=== PATIENT | female | born 1990 | race African-American/Black ===

== ENCOUNTER 2016-03-25 23:41 | Emergency (ER) | payer MEDICAID ==
[~2016-03-25 23:41] MED LIST: AMOX875 PO; BENZ100 PO; IBUP-232 PO; IBUP600T26 PO; PROM25TA5 PO
[2016-03-25 23:44] VITALS: BP 135/110; PULSE 97; RESP 16; TEMP 98.3; O2SAT 97
[2016-04-07] MEDS ORDERED: GUMMCHW (17:12)
[2016-04-15] MEDS ORDERED: METR-1 PO ×2 (15:29→16:25)
[2016-04-15] MEDS ORDERED: METR500T10 PO (16:26)
[2016-07-20] MEDS ORDERED: PYRI25TA2 PO (15:51)
[2016-08-29] MEDS ORDERED: NITR1CAP36 PO (09:25)
== END 2016-03-26 00:30 | disposition left against medical advice (07) ==
LOC: NED 23:41
DX: J35.9 Chronic disease of tonsils and adenoids, unspecified (principal)
CPT/HCPCS: 99281

== ENCOUNTER 2016-04-25 09:54 | Emergency (ER) | payer MEDICAID ==
[~2016-04-25] VITALS: Ht 149.9 cm; Wt 100.0 kg
[~2016-04-25 09:54] MED LIST changes: -AMOX875 PO; -BENZ100 PO; +GUMMCHW; -IBUP-232 PO; -IBUP600T26 PO; +METR500T10 PO; -PROM25TA5 PO
[2016-04-25 09:55] VITALS: BP 119/64; PULSE 96; RESP 18; TEMP 98.2; O2SAT 98
--- NOTE | 2016-04-25 10:36 | PD ---
HPI Chief Complaint: ENT Complaint Time Seen by Provider: 10:21 Travel History International Travel<30 days: No Contact w/Intl Traveler<30days: No Traveled to known affect area: No History of Present Illness HPI 24-year-old female, 13 weeks , presents to the emergency Department with complaint of sore throat 2 days. Reports nasal congestion. Denies fever , chills. Denies ear pain or cough. Denies headache or abdominal pain. Denies lump in throat, difficulty swallowing, unusual drooling. Reports painful swallowing. Reports vomiting secondary to . Denies abdominal pain, cramping; vaginal discharge or bleeding. Has not taken any medications or tried any treatments to alleviate her symptoms. No known relieving factors. No known allergies. Denies significant past medical history. Is currently taking Flagyl for a vaginal infection that was prescribed by her PAINT GRINDER/PCP. OB /PERCUSSION INSTRUMENT TUNER and PCP is Dr. Enamorado. No other modifying factors or associated signs and symptoms. PFSH Past Medical History Medical History: Denies Significant Hx Diabetes: No Immune Disorder: No : 1 Para: 1 Miscarriage: 0 : 0 Past Surgical History Eye Surgery: Yes (TEAR DUCT) Social History Alcohol Use: No Tobacco Use: No Substance Use: No Allergies-Medications (Allergen,Severity, Reaction): Coded Allergies: No Known Allergies (Unverified , 04/25/16) Reported Meds & Prescriptions Reported Meds & Active Scripts Active Metronidazole 500 Mg Tab 500 Mg PO BID Reported Gummi Bear Multivitamin/M (Pediatric Multiple Vitamin W/) 1 Chw Chw Review of Systems Except as stated in HPI: all other systems reviewed are Neg Physical Exam Narrative GENERAL: Well-nourished, well-developed female patient, in no acute distress SKIN: Warm and dry. No rash. HEAD: Atraumatic. Normocephalic. EYES: Pupils equal and round at 3 mm with brisk reaction. No scleral icterus. No injection or drainage. PERRLA. ENT: Mucosa pink and dry. Pharynx with 1-2+ tonsils; with erythema and edema; without exudate. No Uvular edema. No uvular, palatal, or tonsillar deviation. Airway patent. EARS: Bilateral pinnae and external canals appear within normal limits. Bilateral tympanic membranes without erythema, dullness or perforation.. NECK: Trachea midline. No Anterior cervical lymphadenopathy; with tenderness. CARDIOVASCULAR: Regular rate and rhythm. No murmur appreciated. RESPIRATORY: No accessory muscle use. Clear to auscultation. Breath sounds equal bilaterally. GASTROINTESTINAL: Abdomen soft, non-tender, nondistended. Hepatic and splenic margins not palpable. Bowel sounds are active 4 quadrants. MUSCULOSKELETAL: No obvious deformities. No clubbing. No cyanosis. No edema. NEUROLOGICAL: Awake and alert. Oriented 3. No obvious cranial nerve deficits. Motor grossly within normal limits. Normal speech. Moves all extremities. PSYCHIATRIC: Appropriate mood and affect; insight and judgment normal. Data Data Last Documented VS Vital Signs Date Time Temp Pulse Resp B/P Pulse Ox O2 Delivery O2 Flow Rate FiO2 04/25/16 09:55 98.2 96 18 119/64 98 Room Air Orders Group A Rapid Strep Screen (04/25/16 10:24) Strep Culture (Group A) (04/25/16 10:28) MDM Medical Decision Making Medical Screen Exam Complete: Yes Emergency Medical Condition: Yes Medical Record Reviewed: Yes Differential Diagnosis Viral pharyngitis, strep pharyngitis, viral illness Narrative Course 25-year-old female that reports being 13 weeks presents with complaint of sore throat. Afebrile in the ER. Patient denies fever, chills. Denies lump in throat, unusual drooling, difficulty swallowing. Oropharynx is erythematous and mildly edematous without exudate. Denies cough. Centor Score : Using Centor score for management of sore throat the patient's risk of GABHS pharyngitis is Score 3=risk of GABHS 28-35%=perform rapid strep swab. Rapid strep ordered. 1046: Rapid strep negative. Discussed symptom treatment with patient and she verbalized understanding and agreement with treatment plan. Patient is medically cleared and stable for discharge. Discussed reasons to return to the emergency department. Instructed patient to follow up with primary care provider. Patient agrees with treatment plan. The patients vital signs are stable and the patient is stable for outpatient follow-up and treatment. Patient discharged home, stable and in no acute distress. Diagnosis Primary Impression: Viral pharyngitis Referrals: Primary Care Physician Patient Instructions: General Instructions, Pharyngitis (ED) Departure Forms: Tests/Procedures, Work Release Enter return to work date: Apr 26, 2016 Additional Instructions: Get plenty of sleep/rest Rest your voice Drink plenty of fluids to prevent dehydration Use warm saltwater gargles to soothe throat pain Use an air humidifier/turn off ceiling fans Use throat lozenges as needed for sore throat Use ibuprofen or acetaminophen as needed to relieve pain and fever Follow-up with your primary care provider within 2-4 days Return immediately to the emergency department with worsening of symptoms Med/Other Pt SpecificInfo: Prescription(s) given Disposition: 01 DISCHARGE HOME Condition: Stable Sophia Almaraz Apr 25, 2016 10:24
[2016-07-20] MEDS ORDERED: PYRI25TA2 PO (15:51)
[2016-08-29] MEDS ORDERED: NITR1CAP36 PO (09:25)
== END 2016-04-25 10:53 | disposition home or self-care (01) ==
LOC: NEPB 09:54
DX: O26.891 Other specified pregnancy related conditions, first trimester (principal); J02.9 Acute pharyngitis, unspecified; B34.9 Viral infection, unspecified
CPT/HCPCS: 87081; 87880; 99283

== ENCOUNTER → 2016-04-26 | Outpatient (CLI) | payer MEDICAID ==
[~2016-04-26] MED LIST changes: +NITR1CAP36 PO; +PYRI25TA2 PO
== END ==
LOC: HPND 10:00
PROVIDERS: ATTEND Family Medicine
DX: Z34.90 Encounter for supervision of normal pregnancy, unspecified, unspecified trimester (principal)
CPT/HCPCS: 36416; 76813

== ENCOUNTER 2016-05-20 02:43 | Emergency (ER) | payer MEDICAID ==
[~2016-05-20] VITALS: Ht 149.9 cm; Wt 102.0 kg
[~2016-05-20 02:43] MED LIST changes: -NITR1CAP36 PO; -PYRI25TA2 PO
[2016-05-20 02:45] VITALS: BP 131/77; PULSE 98; RESP 18; TEMP 98; O2SAT 99
--- NOTE | 2016-05-20 04:28 | PD ---
HPI Chief Complaint: Cold / Flu Symptoms Time Seen by Provider: 04:23 Travel History International Travel<30 days: No Contact w/Intl Traveler<30days: No Traveled to known affect area: No History of Present Illness HPI 25-year-old white female who is 16 weeks presents with complaints of runny nose, cough and congestion for last 2-3 days. She states that the coughing causing her to feel nauseous and one of vomiting. She does state that she does normally have nausea due to her . She is not taking any medications currently. She denies any shortness of breath or wheezing. No abdominal pain or vaginal bleeding. No leakage of fluid. No dysuria or frequency. No myalgias or arthralgias. PFSH Past Medical History Medical History: Denies Significant Hx Diabetes: No Diminished Hearing: No Immune Disorder: No Tetanus Vaccination: < 5 Years ?: LMP: 01/22/16 : 1 Para: 1 Miscarriage: 0 : 0 Past Surgical History Eye Surgery: Yes (TEAR DUCT) Social History Alcohol Use: No Tobacco Use: No Substance Use: No Allergies-Medications (Allergen,Severity, Reaction): Coded Allergies: No Known Allergies (Unverified , 05/20/16) Reported Meds & Prescriptions Reported Meds & Active Scripts Active Reported Gummi Bear Multivitamin/M (Pediatric Multiple Vitamin W/) 1 Chw Chw Review of Systems Except as stated in HPI: all other systems reviewed are Neg Physical Exam Narrative GENERAL: Well-developed, well-nourished in no acute distress. Nontoxic appearing. HEAD: Normocephalic, no pain on percussion of the sinuses EYES: Pupils equal round and reactive. Extraocular motions intact. No scleral icterus. No injection or drainage. ENT: TMs clear without erythema. The external auditory canals clear. Nose: clear nasal discharge with edema to the turbinates. Posterior pharynx is pink and moist. No tonsillar edema or exudate. Uvula midline. Airway patent. NECK: Trachea midline.Supple, nontender, moves head freely. No central bony tenderness or spasm. CARDIOVASCULAR: Regular rate and rhythm without murmurs, gallops, or rubs. RESPIRATORY: Clear to auscultation. Breath sounds equal bilaterally. No wheezes , rales, or rhonchi. GASTROINTESTINAL: Abdomen soft, obese, non-tender, nondistended. No hepato- splenomegaly, or palpable masses. No guarding. EXTREMITIES: No clubbing, cyanosis, or edema. No joint tenderness, effusion, or edema noted. BACK: Nontender without deformity or crepitance. No flank tenderness. Data Data Last Documented VS Vital Signs Date Time Temp Pulse Resp B/P Pulse Ox O2 Delivery O2 Flow Rate FiO2 05/20/16 02:45 98.0 98 18 131/77 99 Room Air Orders Influenzae A/B Antigen (05/20/16 03:32) MDM Medical Decision Making Medical Screen Exam Complete: Yes Emergency Medical Condition: Yes Medical Record Reviewed: Yes Interpretation(s) Influenza: Negative Differential Diagnosis MDM: High Differential diagnoses: Pneumonia, bronchitis, URI, asthma, RAD, legionnaire's disease, SARS, ARDS, influenza, bronchiolitis, RSV,PE,CHF Narrative Course Patient's influenza is negative. Her symptoms are consistent with upper respiratory tract infection. This is viral in etiology. Diagnosis Primary Impression: Viral URI with cough Patient Instructions: General Instructions Additional Instructions: Rest. Increase fluids. Tylenol for fever. Sudafed. Benadryl for nausea. Follow-up with your OB doctor on Monday. Return to the ER for emergencies. Med/Other Pt SpecificInfo: No Meds Exist/No RX given Disposition: DISCHARGE HOME Condition: Stable Luís Miller May 20, 2016 04:28
[2016-07-20] MEDS ORDERED: PYRI25TA2 PO (15:51)
[2016-08-29] MEDS ORDERED: NITR1CAP36 PO (09:25)
== END 2016-05-20 04:36 | disposition home or self-care (01) ==
LOC: NEPB 02:43
DX: J06.9 Acute upper respiratory infection, unspecified (principal)
CPT/HCPCS: 87804; 99283

== ENCOUNTER → 2016-05-30 | Outpatient (CLI) | payer MEDICAID ==
[~2016-05-30] MED LIST changes: -METR500T10 PO; +NITR1CAP36 PO; +PYRI25TA2 PO
== END ==
LOC: HPND 08:21
PROVIDERS: ATTEND Family Medicine
DX: O99.212 Obesity complicating pregnancy, second trimester (principal); O34.212 Maternal care for vertical scar from previous cesarean delivery; E66.01 Morbid (severe) obesity due to excess calories; Z68.42 Body mass index [BMI] 45.0-49.9, adult; Z3A.00 Weeks of gestation of pregnancy not specified
CPT/HCPCS: 76811

== ENCOUNTER 2016-06-03 11:15 | Emergency (ER) | payer MEDICAID ==
[~2016-06-03] VITALS: Ht 149.9 cm; Wt 100.0 kg
[~2016-06-03 11:15] MED LIST changes: -NITR1CAP36 PO; -PYRI25TA2 PO
[2016-06-03 11:17] VITALS: BP 133/74; PULSE 98; RESP 20; TEMP 98.5; O2SAT 100
--- NOTE | 2016-06-03 11:35 | PD ---
HPI Chief Complaint: Pain: Acute or Chronic Time Seen by Provider: 11:33 Travel History International Travel<30 days: No Contact w/Intl Traveler<30days: No Traveled to known affect area: No History of Present Illness HPI Patient 25-year-old female presents to the emergency room for evaluation of right lower extremity pain. Patient states since yesterday she's had a painful spot behind her right knee which hurts her whenever she stands. Patient states she's never had something like this before. Denies any fever shortness of breath. States the pain radiates up into her thigh. PFSH Past Medical History Medical History: Denies Significant Hx Diabetes: No Diminished Hearing: No Immune Disorder: No ?: LMP: 01/22/2016 : 1 Para: 1 Miscarriage: 0 : 0 Past Surgical History Surgical History: No Previous Surgery Eye Surgery: Yes (TEAR DUCT) Social History Alcohol Use: No Tobacco Use: No Substance Use: No Allergies-Medications (Allergen,Severity, Reaction): Coded Allergies: No Known Allergies (Unverified , 05/20/16) Reported Meds & Prescriptions Reported Meds & Active Scripts Active Reported Gummi Bear Multivitamin/M (Pediatric Multiple Vitamin W/) 1 Chw Chw Review of Systems Except as stated in HPI: all other systems reviewed are Neg Physical Exam Narrative GENERAL: Overweight, well-developed patient, In no apparent distress. SKIN: Warm and dry. HEAD: Normocephalic. EYES: No scleral icterus. No injection or drainage. NECK: Supple, trachea midline. No JVD or lymphadenopathy. CARDIOVASCULAR: Regular rate and rhythm without murmurs, gallops, or rubs. RESPIRATORY: Breath sounds equal bilaterally. No accessory muscle use. GASTROINTESTINAL: Abdomen soft, non-tender, nondistended. MUSCULOSKELETAL: No cyanosis, or edema. There is a small nonindurated area of the right knee in the popliteal fossa more on the medial aspect. No overlying erythema. Minimally tender to palpation. Full nontender range of motion of the right knee hip and ankle. She is ambulatory in the emergency department. She has an atraumatic normal left lower extremity exam. BACK: Nontender without obvious deformity. No CVA tenderness. Data Data Last Documented VS Vital Signs Date Time Temp Pulse Resp B/P Pulse Ox O2 Delivery O2 Flow Rate FiO2 06/03/16 14:03 85 16 124/68 100 06/03/16 11:17 98.5 Room Air Orders Us Leg Venous Doppler (06/03/16 11:33) MDM Medical Decision Making Medical Screen Exam Complete: Yes Emergency Medical Condition: Yes Differential Diagnosis Otto's cyst, DVT less likely, abscess extremely likely. Narrative Course Given the patient has some radiation up into her thigh we'll get a DVT examination which is negative. Discussed with patient's of the medic management return to ED criteria. Follow-up with primary care physician. Diagnosis Primary Impression: Otto cyst Qualified Code: M71.21 - Otto cyst, right Disposition: 01 DISCHARGE HOME Condition: Stable Cisco Michelle MD Jun 03, 2016 11:35
--- NOTE | 2016-06-03 12:34 | RADRPT ---
EXAM DATE/TIME: 06/03/2016 12:13 [facility] COMPARISON: No previous studies available for comparison. INDICATIONS : Right leg pain. MEDICAL HISTORY : . SURGICAL HISTORY : Eye surgery. ENCOUNTER: Initial ACUITY: 1 day PAIN SCORE: 10/10 LOCATION: Right leg. TECHNIQUE: Venous ultrasound of the leg was performed from the inguinal ligament to the proximal calf. Real-kareem e, color Doppler and spectral tracing, compression and augmentation techniques were used. FINDINGS: There is normal compressibility of the deep venous system from the inguinal region to the proximal ca lf. No echogenic clot is seen in the lumen of the common femoral, femoral, popliteal, and posterior tibial veins. There is a normal response of the venous system to proximal and distal augmentation an d respiration. CONCLUSION: No DVT. Neel Blount MD on June 03, 2016 at 12:31 Board Certified Radiologist. This report was verified electronically.
[2016-06-03 14:03] VITALS: BP 124/68
[2016-07-20] MEDS ORDERED: PYRI25TA2 PO (15:51)
[2016-08-29] MEDS ORDERED: NITR1CAP36 PO (09:25)
== END 2016-06-03 14:09 | disposition home or self-care (01) ==
LOC: NEPA 11:15
DX: M71.21 Synovial cyst of popliteal space [Baker], right knee (principal)
CPT/HCPCS: 93971

== ENCOUNTER → 2016-06-21 | Outpatient (CLI) | payer MEDICAID ==
[~2016-06-21] MED LIST changes: +NITR1CAP36 PO; +PYRI25TA2 PO
== END ==
LOC: HPND 09:14
PROVIDERS: ATTEND Family Medicine
DX: O99.212 Obesity complicating pregnancy, second trimester (principal); O34.212 Maternal care for vertical scar from previous cesarean delivery
CPT/HCPCS: 76816

== ENCOUNTER → 2016-07-25 | Outpatient (CLI) | payer MEDICAID | LOC: HPND 08:01 | PROVIDERS: ATTEND Family Medicine | DX: O99.212 Obesity complicating pregnancy, second trimester (principal); O35.1XX0 Maternal care for (suspected) chromosomal abnormality in fetus, not applicable or unspecified; E66.01 Morbid (severe) obesity due to excess calories; Z68.42 Body mass index [BMI] 45.0-49.9, adult | CPT/HCPCS: 76816 ==

== ENCOUNTER → 2016-08-22 | Outpatient (CLI) | payer MEDICAID | LOC: HPND 08:02 | PROVIDERS: ATTEND Family Medicine | DX: O99.213 Obesity complicating pregnancy, third trimester (principal); E66.01 Morbid (severe) obesity due to excess calories; Z68.42 Body mass index [BMI] 45.0-49.9, adult; Z3A.30 30 weeks gestation of pregnancy | CPT/HCPCS: 76816 ==

== ENCOUNTER 2016-08-31 03:50 | Emergency (ER) | payer MEDICAID ==
[2016-08-31 04:41] VITALS: RESP 18
--- NOTE | 2016-08-31 04:43 | PD ---
HPI Chief Complaint Contractions Travel History International Travel<30 Days: No Contact w/Intl Traveler<30Days: No Known Affected Area: No History of Present Illness HPI at 31w 5d presents with c/o contractions. Reports driving earlier this evening and feeling occasional contractions. Denies LOF/VB. Reports good FM. Currently taking antibiotics for a UTI. Para: 2 : 3 Last Menstrual Period: Aug 31, 2016 History Past Medical History Medical History: Denies Significant Hx Obstetric History Obstetric History FT C/S x 2 Past Surgical History Narrative Surgical C/S x 2 Family History Family History: Negative Social History Alcohol Use: No Tobacco Use: No Substance Abuse: No Allergies-Medications (Allergen,Severity, Reaction): Coded Allergies: No Known Allergies (Unverified , 08/29/16) Home Meds Active Scripts Nitrofurantoin Macrocrystal 100 Mg [id number] Mg PO QID #28 CAP Ref 0 Prov:Annamarie Enamorado MD R1 08/29/16 Pyridoxine 25 Mg Tab25 Mg PO Q8HR PRN (NAUSEA OR VOMITING) #30 TAB Ref 11 Prov:Annamarie Enamorado MD R1 07/20/16 Reported Medications Pediatric Multiple Vitamin W/ (Gummi Bear Multivitamin/M)1 Chw Chw 04/07/16 Review of Systems Except as stated in HPI: all other systems reviewed are Neg Physical Exam AFVSS Narrative GENERAL: Well-nourished, well-developed patient. SKIN: Warm and dry. HEAD: Normocephalic and atraumatic. EYES: No scleral icterus. No injection or drainage. ENT: No nasal drainage noted. Mucous membranes pink. Airway patent. NECK: Supple, trachea midline. No JVD. CARDIOVASCULAR: Regular rate and rhythm without murmurs, gallops, or rubs. RESPIRATORY: Breath sounds equal bilaterally. No accessory muscle use. BREASTS: Bilateral exam showed no masses , no retractions, no nipple discharge. ABDOMEN/GI: Abdomen soft, non-tender, bowel sounds present, no rebound, no guarding Gravid to [-] weeks size Fundal Height: [-] GENITOURINARY: External Genitalia: intact and normal in appearance BUS glands: [-] Cervix: [per RN exam] Dilatation: [0] Effacement: [0] Station: [3] Presentation: [-] Membranes: [intact or ruptured] Uterine Contractions: [none] FHT's: Category: [1] Baseline: [130] Reactive: [yes] Variability: [moderate] Decels: [none] EXTREMITIES: No cyanosis or edema. BACK: Nontender without obvious deformity. No CVA tenderness. NEUROLOGICAL: Awake and alert. Motor and sensory grossly within normal limits. Five out of 5 muscle strength in all muscle groups. Normal speech. MDM Interpretation(s) at 31w 5d with false labor, UTI. Plan Continue antibiotics for UTI. labor precautions given. Close f/u with OB provider encouraged. Increase hydration. Return if symptoms return or worsen. All questions answered. Diagnosis Diagnosis: Primary Impression: 31 weeks gestation of Additional Impressions: False labor before 37 completed weeks of gestation during in third trimester, antepartum Previous section Disposition: 01 DISCHARGE HOME Condition: Stable Kelli Tee MD Aug 31, 2016 04:43
--- NOTE | 2016-08-31 04:48 | PD ---
HPI Chief Complaint Contractions Date Seen: Aug 31, 2016 Time Seen: 04:30 (Sami Barrera MD R1) Travel History International Travel<30 Days: No Contact w/Intl Traveler<30Days: No Known Affected Area: No (Sami Barrera MD R1) History of Present Illness HPI Brianna Jaen is a very pleasant 26 year old at 31 and 5/7 weeks gestation who presents to the OB ED with complaints of contractions. She states she was picking up her boyfriend around 02:30 this AM and felt a contraction while in her car. She states she has felt about 6 contractions total since then that have been irregular. Denies LOF or VB. Reports +FM. Denies headache, lightheadedness, RUQ pain, visual symptoms. She was given a prescription for nitrofurantoin 100mg po qid for 7 days after her urine dipstick on 08/29 showed 100+ plus protein and large leukocyte. She reports being compliant with this thus far. labs: HIV negative, syphilis negative, GC/Chlamydia negative, HepB negative, Rubella immune, Hgb 10.9/Hct 34.7, Pap smear negative for intraepithelial lesion or malignancy in 2013 Para: 2 : 3 (Sami Barrera MD R1) History Past Medical History Narrative Medical History of chlamydia, treated (Sami Barrera MD R1) Obstetric History Obstetric History : 02/07/2012, 41 weeks, female, @ [facility], emergency secondary to nonreassuring heart tones G2: 11/15/13, 40 weeks, female, repeat @ [facility] (Sami Barrera MD R1) Past Surgical History Narrative Surgical CXN x2 Tear duct surgery (Sami Barrera MD R1) Family History Family History: Negative (Sami Barrera MD R1) Social History Alcohol Use: No Tobacco Use: No Substance Abuse: No (Sami Barrera MD R1) Allergies-Medications (Allergen,Severity, Reaction): Coded Allergies: No Known Allergies (Unverified , 08/29/16) Home Meds Active Scripts Nitrofurantoin Macrocrystal 100 Mg [id number] Mg PO QID #28 CAP Ref 0 Prov:Annamarie Enamorado MD R1 08/29/16 Pyridoxine 25 Mg Tab25 Mg PO Q8HR PRN (NAUSEA OR VOMITING) #30 TAB Ref 11 Prov:Annamarie Enamorado MD R1 07/20/16 Reported Medications Pediatric Multiple Vitamin W/ (Gummi Bear Multivitamin/M)1 Chw Chw 04/07/16 Review of Systems Except as stated in HPI: all other systems reviewed are Neg (Sami Barrera MD R1) Physical Exam Narrative GENERAL: Well-nourished, well-developed patient. SKIN: Warm and dry. HEAD: Normocephalic and atraumatic. EYES: No scleral icterus. No injection or drainage. ENT: No nasal drainage noted. Mucous membranes pink. Airway patent. NECK: Supple, trachea midline. No JVD. CARDIOVASCULAR: Regular rate and rhythm without murmurs, gallops, or rubs. RESPIRATORY: Breath sounds equal bilaterally. No accessory muscle use. ABDOMEN/GI: Abdomen soft, non-tender, bowel sounds present, no rebound, no guarding Gravid to 32 weeks size GENITOURINARY: External Genitalia: [-] Cervix: posterior Dilatation: 0 Effacement: 0 Station: [-] Presentation: [-] Membranes: [-] Uterine Contractions: none on tocometer FHT's: Category: I Baseline: 130s Reactive: yes Variability: mod Decels: none EXTREMITIES: No cyanosis or edema. BACK: Nontender without obvious deformity. No CVA tenderness. NEUROLOGICAL: Awake and alert. Motor and sensory grossly within normal limits. Normal speech. (Sami Barrera MD R1) Data Data Vital Signs Reviewed: Yes (Sami Barrera MD R1) [facility] Medical Record Reviewed: Yes Plan Very pleasant 26 year old at 31 and 5/7 weeks gestation presents to OB ED with complaints of contractions. 1. IUP - Category I tracing, reassuring - No contractions on tocometer - Cervix closed - VSS - Encouraged oral hydration - Counseled patient on signs of early labor and when to present back to the OB ED - Follow up with PCP Dr. Annamarie Enamorado at next routine visit (Sami Barrera MD R1) Diagnosis Diagnosis: Primary Impression: Ravalli Rodney' contraction Disposition: 01 DISCHARGE HOME Condition: Stable Attestation Patient seen and examined. Agree with resident's plan. (Kelli Tee MD) Sami Barrera MD R1 Aug 31, 2016 04:48 Kelli Tee MD Aug 31, 2016 07:48
== END 2016-08-31 06:19 | disposition home or self-care (01) ==
LOC: HOBED 03:50
DX: O47.03 False labor before 37 completed weeks of gestation, third trimester (principal); O34.219 Maternal care for unspecified type scar from previous cesarean delivery; Z3A.31 31 weeks gestation of pregnancy
CPT/HCPCS: 99283

== ENCOUNTER 2016-09-10 13:31 | Emergency (ER) | payer MEDICAID ==
--- NOTE | 2016-09-10 15:11 | PD ---
HPI Chief Complaint back pain Date Seen: Sep 10, 2016 Travel History International Travel<30 Days: No Contact w/Intl Traveler<30Days: No Known Affected Area: No History of Present Illness HPI This is a 26y/o at 33w3d who presents to the [facility] with reports of intermittent back pain for the last few weeks. The pain is usually preceded by 2 hours of contractions. She denies vaginal bleeding or leakage of fluid with reports of active movements. care with Dr. Enamorado in the resident clinic, care complicated by: 1. Choroid plexus cyst in the fetus, since resolved. 2. Previous c/s times 2 3. current UTI on macrobid Para: 2 : 3 History Past Medical History Medical History: Denies Significant Hx Obstetric History Obstetric History 02/07/2012 41w Primary c/s, emergent, Female 02/15/2014 40w Repeat c/s, Female Past Surgical History Narrative Surgical C/s times 2 Tear duct surgery as a child Family History Family History: Negative Social History Alcohol Use: No Tobacco Use: No Substance Abuse: No Allergies-Medications (Allergen,Severity, Reaction): Coded Allergies: No Known Allergies (Unverified , 08/29/16) Home Meds Active Scripts Nitrofurantoin Macrocrystal 100 Mg [id number] Mg PO QID #28 CAP Ref 0 Prov:Annamarie Enamorado MD R1 08/29/16 Pyridoxine 25 Mg Tab25 Mg PO Q8HR PRN (NAUSEA OR VOMITING) #30 TAB Ref 11 Prov:Annamarie Enamorado MD R1 07/20/16 Reported Medications Pediatric Multiple Vitamin W/ (Gummi Bear Multivitamin/M)1 Chw Chw 04/07/16 Review of Systems Except as stated in HPI: all other systems reviewed are Neg Physical Exam Narrative GENERAL: Well-nourished, well-developed patient. SKIN: Warm and dry. HEAD: Normocephalic and atraumatic. EYES: No scleral icterus. No injection or drainage. ENT: No nasal drainage noted. Mucous membranes pink. Airway patent. NECK: Supple, trachea midline. No JVD. CARDIOVASCULAR: Regular rate and rhythm without murmurs, gallops, or rubs. RESPIRATORY: Breath sounds equal bilaterally. No accessory muscle use. BREASTS: Bilateral exam showed no masses , no retractions, no nipple discharge. ABDOMEN/GI: Abdomen soft, non-tender, bowel sounds present, no rebound, no guarding Gravid to 33 weeks size GENITOURINARY: External Genitalia: intact and normal in appearance VE: deferred Uterine Contractions: None FHT's: Category: 1 EXTREMITIES: No cyanosis or edema. BACK: Nontender without obvious deformity. No CVA tenderness. NEUROLOGICAL: Awake and alert. Motor and sensory grossly within normal limits. Five out of 5 muscle strength in all muscle groups. Normal speech. Data Data Vital Signs Reviewed: Yes Orders Vital Signs (Adult) .ON ADMISSION (09/10/16 15:01) ^ Labor Status (09/10/16 15:01) ^ Non Stress Test (09/10/16 15:01) MDM Medical Record Reviewed: No Narrative Course / MDM This is a 26y/o at 33w3d with back pain for a few weeks. -reassuring status -no evidence of PTL -currently on macrobid for UTI Plan -d/c home -f/u with Dr. Enamorado as scheduled tomorrow Diagnosis Diagnosis: Primary Impression: 33 weeks gestation of Additional Impression: Back pain affecting in third trimester Disposition: 01 DISCHARGE HOME Condition: Stable Patient Instructions: Having Your Baby: The Labor Process (GEN), Urinary Tract Infection in (ED), Abdominal Pain in (ED), General Instructions Departure Forms: Tests/Procedures Mary Ac MD Sep 10, 2016 15:11
== END 2016-09-10 15:00 | disposition home or self-care (01) ==
LOC: HOBED 13:31
DX: O26.893 Other specified pregnancy related conditions, third trimester (principal); M54.9 Dorsalgia, unspecified; O23.43 Unspecified infection of urinary tract in pregnancy, third trimester; Z3A.33 33 weeks gestation of pregnancy; Z79.899 Other long term (current) drug therapy
CPT/HCPCS: 59025

== ENCOUNTER 2016-10-01 17:09 | Emergency (ER) | payer MEDICAID ==
[~2016-10-01 17:09] MED LIST changes: +MICO1CRE2 VAGINAL; -NITR1CAP36 PO
[2016-10-01] MEDS ORDERED: ACETAMINOPHEN 325 MG TAB PO ONE (18:00)
--- NOTE | 2016-10-01 18:13 | PD ---
HPI Chief Complaint abdominal pain Date Seen: Oct 01, 2016 Time Seen: 17:59 Travel History International Travel<30 Days: No Contact w/Intl Traveler<30Days: No History of Present Illness HPI Patient is a 26 year of at 36 and 1/7 weeks gestation, EDC 10/28/2016, who presents to the [facility] with abdominal pain. She denies leakage of fluid, vaginal bleeding, and contractions. She feels baby moving regularly. She denies VALDERRAMA/N/V/D /fever/sick contacts/SOB/calf pain/dizziness/seeing spots. OB care is with Dr. Annamarie Enamorado, [place] 09/30/2016 at the [facility]. She had no complaints at the visit yesterday. She does have urine sample from visit 09/23/2016 showing 10-50K yeast, with recommendation to get Monistat ointment OTC for treatment. She has not done this yet. History Past Medical History Medical History: Denies Significant Hx Past Surgical History Narrative Surgical Cs x 2 Family History Family History: Negative Social History Alcohol Use: No Tobacco Use: No Substance Abuse: No Allergies-Medications (Allergen,Severity, Reaction): Coded Allergies: No Known Allergies (Unverified , 09/30/16) Home Meds Active Scripts Miconazole 3 Vaginal Cream (Monistat 3 Vaginal Cream)4 % Cream1 Appl VAGINAL HS #1 BOX Ref 0 Apply 1 applicator to the vaginal area at bedtime. Repeat for 3 days. Prov:Annamarie Enamorado MD R1 09/29/16 Pyridoxine 25 Mg Tab25 Mg PO Q8HR PRN (NAUSEA OR VOMITING) #30 TAB Ref 11 Prov:Annamarie Enamorado MD R1 07/20/16 Reported Medications Pediatric Multiple Vitamin W/ (Gummi Bear Multivitamin/M)1 Chw Chw 04/07/16 Review of Systems Except as stated in HPI: all other systems reviewed are Neg Physical Exam Narrative GENERAL: Well-nourished, well-developed patient. Obese and in no apparent distress. SKIN: Warm and dry. No rashes HEAD: Normocephalic and atraumatic. EYES: No scleral icterus. No injection or drainage. ENT: No nasal drainage noted. Mucous membranes pink. Airway patent. NECK: Supple, trachea midline. No JVD. CARDIOVASCULAR: Regular rate and rhythm without murmurs, gallops, or rubs. RESPIRATORY: Breath sounds equal bilaterally. No accessory muscle use. ABDOMEN/GI: Abdomen soft, obese, gravid. Nontender to palpation. Normal bowel sounds. No rebound, no guarding GENITOURINARY: no external lesions External Genitalia: intact and normal in appearance Cervix: closed, thick, soft Presentation: vertx Membranes: - Uterine Contractions: absent FHT's: Category: 1 Baseline: 140 Reactive: 170 Variability: mod Decels: [absent] EXTREMITIES: No cyanosis or edema. BACK: Nontender without obvious deformity. No CVA tenderness. NEUROLOGICAL: Awake and alert. Motor and sensory grossly within normal limits. Five out of 5 muscle strength in all muscle groups. Normal speech. 2+ reflexes. Data Data Vital Signs Reviewed: Yes Orders Vital Signs (Adult) .ON ADMISSION (10/01/16 17:49) ^ Labor Status (10/01/16 17:49) ^ Non Stress Test (10/01/16 17:49) ^ Hydration (10/01/16 17:49) Acetaminophen (Tylenol) (10/01/16 18:00) MDM Medical Record Reviewed: Yes (102/61, P110, R18, T 98.3F) Narrative Course / MDM 26-year-old at 36 and 1/7 weeks gestation who presents to the OB ED with abdominal pain. Intrauterine : Category 1 tracing No contractions Vaginal exam shows no signs of labor Patient desires repeat Abdominal pain: Likely musculoskeletal given location Vital signs were within normal limits a low likelihood of other systemic cause Tylenol 650 mg 1 PO Fentanyl 50mg x 1 IV If symptoms improve, will discharge home Recommended patient to rest and consider using an abdominal binder or similar apparatus to stabilize the abdomen History of 2: consult scheduled for October 06 at 2 PM Patient was reminded the importance to attend this session Follow-up appointment with me on October 07 Patient was discussed with Dr. Coleman Diagnosis Diagnosis: Primary Impression: 36 weeks gestation of Additional Impressions: Previous section Abdominal pain affecting Disposition: 01 DISCHARGE HOME Condition: Stable Patient Instructions: Abdominal Pain in (ED), General Instructions, Narcotic given in the ED Annamarie Enamorado MD R1 Oct 01, 2016 18:13
== END 2016-10-01 19:10 | disposition home or self-care (01) ==
LOC: HOBED 17:09
DX: O26.893 Other specified pregnancy related conditions, third trimester (principal); R10.9 Unspecified abdominal pain; O34.219 Maternal care for unspecified type scar from previous cesarean delivery; Z3A.36 36 weeks gestation of pregnancy
CPT/HCPCS: 96372; 99284; J3010

== ENCOUNTER 2016-10-10 22:50 | Emergency (ER) | payer MEDICAID ==
--- NOTE | 2016-10-10 23:48 | PD ---
HPI Chief Complaint vaginal pain Date Seen: Oct 11, 2016 Travel History International Travel<30 Days: No Contact w/Intl Traveler<30Days: No History of Present Illness HPI Ms. Jean is a 26-year-old female patient of Dr. Annamarie Enamorado at 37 4/7 weeks (ASIA of 10/28/16 based on LMP and ultrasound) who presents with symptoms of vaginal pain. Ms. Jean reports that pain in vaginal area began at approximately 5 PM yesterday evening; patient reports that it is on the sides of her vagina and near the "bone;" she describes as throbbing in nature. She states that it does not seem to be burning, is not associated with urination, and is not associated with vaginal discharge, vaginal bleeding, or loss of vaginal fluid. Patient states that vaginal pain is constant rather than intermittent. Patient reports that she has had previous upper abdominal pain but that she has not had this recently. Patient reports history of vomiting for prolonged duration [per EMR, this has been reported chronically at patient's care visits]. Patient does not feel that she is having contractions. Patient reports that history has been largely unremarkable. Patient reports normal movement. Patient does not report headache, visual changes , shortness of breath, or chest pain. Patient reports swelling in her feet. Patient reports that she has had diarrhea for the past 3 days. Patient states that she had UTI that was treated 08/2016 with Macrobid; she has not had any urinary symptoms since. Patient does not report any difficulties with sexual transmitted diseases; she states she has not been sexually active since becoming . [Patient with history of chlamydia per EMR; subsequently tested negative]. labs reviewed; unremarkable Patient has scheduled repeat CS at 39 weeks (10/21/2016). Para: 2 : 3 History Past Medical History Narrative Medical Per Patient- None Per EMR History of chlamydia, treated Obstetric History Obstetric History CS- full term in 2011 for distress CS- full term in 2013 (repeat) Past Surgical History Narrative Surgical CS- full term in 2011 for distress CS- full term in 2013 (repeat) Family History Family History: Negative Social History Alcohol Use: No Tobacco Use: No Substance Abuse: No Allergies-Medications (Allergen,Severity, Reaction): Coded Allergies: No Known Allergies (Unverified , 10/07/16) Home Meds Active Scripts Miconazole 3 Vaginal Cream (Monistat 3 Vaginal Cream)4 % Cream1 Appl VAGINAL HS #1 BOX Ref 0 Apply 1 applicator to the vaginal area at bedtime. Repeat for 3 days. Prov:Annamarie Enamorado MD R1 09/29/16 Pyridoxine 25 Mg Tab25 Mg PO Q8HR PRN (NAUSEA OR VOMITING) #30 TAB Ref 11 Prov:Annamarie Enamorado MD R1 07/20/16 Reported Medications Pediatric Multiple Vitamin W/ (Gummi Bear Multivitamin/M)1 Chw Chw 04/07/16 Review of Systems General / Constitutional: No: Fever, Chills Eyes: No: Blurred Vision HENT: No: Headaches Cardiovascular: No: Chest Pain or Discomfort Respiratory: No: Short of Breath Gastrointestinal: Vomiting (patient reports frequent vomiting during recent weeks; not new symptom), Abdominal Pain (mild upper abdomen, currently resolved) , No: Nausea Genitourinary: No: Urgency, Dysuria Skin: No Rash Neurologic: No: Syncope Psychiatric: No: Anxiety, Depression Physical Exam HR 99 BP 135/73 RR 18 Narrative GENERAL: Well-nourished, well-developed patient. SKIN: Warm and dry. HEAD: Normocephalic and atraumatic. EYES: No scleral icterus. No injection or drainage. ENT: No nasal drainage noted. Mucous membranes pink. Airway patent. NECK: Supple, trachea midline. No JVD. No thyromegaly or lymphadenopathy CARDIOVASCULAR: Regular rate and rhythm without murmurs, gallops, or rubs. RESPIRATORY: Breath sounds equal bilaterally. No accessory muscle use ABDOMEN/GI: Abdomen soft, non-tender, bowel sounds present, no rebound, no guarding Gravid EXTREMITIES: No cyanosis or edema. BACK: Nontender without obvious deformity. No CVA tenderness. NEUROLOGICAL: Awake and alert. Motor and sensory function grossly within normal limits. GENITOURINARY: External Genitalia: intact and normal in appearance Cervix: Dilatation: 0 Effacement: 30% Station: -2 Presentation: V Membranes: Intact Uterine Contractions: Occ/irritability FHT's: Category: 1 Baseline: 130 Reactive: Y Variability: Mod Decels: None Data Data Vital Signs Reviewed: Yes Orders Vital Signs (Adult) .ON ADMISSION (10/10/16 23:47) ^ Labor Status (10/10/16 23:47) [facility] Medical Record Reviewed: Yes Narrative Course / MDM 26-year-old female patient of Dr. Annamarie Enamorado at 37 4/7 weeks (ASIA of 10/28/16 based on LMP and ultrasound) who presents with symptoms of vaginal pain -Cat 1 rhythm -Cervix closed -No contractions on EFM -Physical exam and vitals benign Plan: -Patient monitored on CTG; reassuring HR -UA recommended to patient; patient stated that she does not need to urinate at this time Updated assessment/plan: -Due to patient's reassuring exam and status, patient's vaginal pain is deemed likely secondary to uterine ligament stretching/ engagement in pelvis. Patient was counselled to rest at home in bed, hydrate abundantly, and take Tylenol as needed for pain -Patient recommended to follow-up with OB provider in 2-3 days [discussed with patient that we will make follow-up appointment with Dr. Enamorado, myself, or another OB provider to reassess her symptoms in several days]. Diagnosis Diagnosis: Primary Impression: Vaginal pain Additional Impression: Patient currently Disposition: 01 DISCHARGE HOME Condition: Stable Referrals: Annamarie Enamorado MD R1 3 days Patient Instructions: Movement (ED), General Instructions, Early Labor Signs (ED) Departure Forms: Tests/Procedures, Work Release Enter return to work date: Oct 14, 2016 Rg Lopez MD R2 Oct 10, 2016 23:47
== END 2016-10-11 01:00 | disposition home or self-care (01) ==
LOC: HOBED 22:50
DX: O26.899 Other specified pregnancy related conditions, unspecified trimester (principal); R10.2 Pelvic and perineal pain; Z3A.37 37 weeks gestation of pregnancy; Z79.899 Other long term (current) drug therapy
CPT/HCPCS: 59025

== ENCOUNTER 2016-10-18 12:15 | Emergency (ER) | payer MEDICAID ==
[2016-10-18] MEDS ORDERED: TERC0.4C2 VAGINAL (13:14)
--- NOTE | 2016-10-18 13:14 | PD ---
HPI Chief Complaint Vaginal discharge with vaginal pain Date Seen: Oct 18, 2016 Time Seen: 13:07 Travel History International Travel<30 Days: No Contact w/Intl Traveler<30Days: No Known Affected Area: No History of Present Illness HPI 26-year-old who is at 38 weeks 4 days comes in today complaining of some vaginal discharge that was watery in appearance as well as vaginal pain. The pain started yesterday mostly located on the external vaginal area does not involve the rectum. States that the vulva appears somewhat swollen, so moderate discharge that began this morning. Patient had pain whenever she was attempted to be checked in the office today. Para: 2 : 4 Miscarriage: 1 History Past Medical History Medical History: Denies Significant Hx Obstetric History Obstetric History 2 Past Surgical History Narrative Surgical Tear duct surgery Family History Family History: Negative Social History Alcohol Use: No Tobacco Use: No Substance Abuse: No Allergies-Medications (Allergen,Severity, Reaction): Coded Allergies: No Known Allergies (Unverified , 10/18/16) Home Meds Active Scripts Miconazole 3 Vaginal Cream (Monistat 3 Vaginal Cream)4 % Cream1 Appl VAGINAL HS #1 BOX Ref 0 Apply 1 applicator to the vaginal area at bedtime. Repeat for 3 days. Prov:Annamarie Enamorado MD R1 09/29/16 Pyridoxine 25 Mg Tab25 Mg PO Q8HR PRN (NAUSEA OR VOMITING) #30 TAB Ref 11 Prov:Annamarie Enamorado MD R1 07/20/16 Reported Medications Pediatric Multiple Vitamin W/ (Gummi Bear Multivitamin/M)1 Chw Chw 04/07/16 Review of Systems Except as stated in HPI: all other systems reviewed are Neg Physical Exam Narrative GENERAL: Well-nourished, well-developed patient. SKIN: Warm and dry. HEAD: Normocephalic and atraumatic. EYES: No scleral icterus. No injection or drainage. CARDIOVASCULAR: Regular rate and rhythm without murmurs, gallops, or rubs. RESPIRATORY: Breath sounds equal bilaterally. No accessory muscle use. ABDOMEN/GI: Abdomen soft, non-tender, bowel sounds present, no rebound, no guarding Gravid to [-38] weeks size Fundal Height: [-] GENITOURINARY: External genitalia and no evidence erythema with slight swelling with the discharge associated with yeast. Amnisure is negative cervix was not checked External Genitalia: intact and normal in appearance BUS glands: [-] Cervix: [-] Dilatation: [-] Effacement: [-] Station: [-] Presentation: [-] Membranes: [intact or ruptured] Uterine Contractions: [-] FHT's: Category: [1-] Baseline: [-145] Reactive: [-Moderate] Variability: [-Moderate] Decels: [-Absent] EXTREMITIES: No cyanosis or edema. BACK: Nontender without obvious deformity. No CVA tenderness. NEUROLOGICAL: Awake and alert. Motor and sensory grossly within normal limits. Five out of 5 muscle strength in all muscle groups. Normal speech. Data Data Vital Signs Reviewed: Yes MDM Plan 26-year-old female at 16/11/29 in weeks gestation presents with vaginal candidiasis. Will treat with Terazol 3 day cream 2 prior sections patient has a day for repeat with tubal ligation Diagnosis Diagnosis: Primary Impression: 38 weeks gestation of Additional Impressions: Vaginal candidiasis Previous section complicating , antepartum condition or complication Disposition: 01 DISCHARGE HOME Scripts Terconazole Vaginal Cream 0.4 % Cream1 Appl VAGINAL HS #45 GM Ref 0 For seven days Prov:Patsy Barnes MD 10/18/16 Patsy Barnes MD Oct 18, 2016 13:14
== END 2016-10-18 13:24 | disposition home or self-care (01) ==
LOC: HOBED 12:15
DX: O98.813 Other maternal infectious and parasitic diseases complicating pregnancy, third trimester (principal); B37.3 Candidiasis of vulva and vagina; O34.219 Maternal care for unspecified type scar from previous cesarean delivery; Z3A.38 38 weeks gestation of pregnancy
CPT/HCPCS: 59025; 84112

== ENCOUNTER 2016-10-21 08:35 | Inpatient (IN) | payer MEDICAID ==
[2016-10-21] VITALS (10 sets, daily range): BP systolic 102–116; BP diastolic 55–67; PULSE 72–98; RESP 16–18; TEMP 97.9–98.6; O2SAT 99–100
[~2016-10-21] VITALS: Ht 149.9 cm; Wt 107.0 kg
[~2016-10-21 08:35] MED LIST changes: +TERC0.4C2 VAGINAL
--- NOTE | 2016-10-21 10:29 | HHI.HP ---
HPI Chief Complaint Repeat section Date Seen: Oct 21, 2016 Time Seen: 10:27 Travel History International Travel<30 Days: No Contact w/Intl Traveler<30Days: No Known Affected Area: No History of Present Illness HPI Patient is a 26-year-old at 39 weeks who presents today for a repeat section. She has received routine care with Dr. Annamarie Enamorado at the [facility]. Patient denies regular contractions, vaginal bleeding and fluid leakage. Positive movement. Para: 2 : 3 History Past Medical History Narrative Medical History of chlamydia, treated Obstetric History Obstetric History : 02/07/2012, 41 weeks, female, @ [facility], emergency secondary to nonreassuring heart tones G2: 11/15/13, 40 weeks, female, repeat @ [facility] Past Surgical History Narrative Surgical section 2 Tear duct surgery Surgery on the right hand as child Family History Family History: Negative Social History Alcohol Use: No Tobacco Use: No Substance Abuse: No Allergies-Medications (Allergen,Severity, Reaction): Coded Allergies: No Known Allergies (Unverified , 10/18/16) Home Meds Active Scripts Terconazole Vaginal Cream 0.4 % Cream1 Appl VAGINAL HS #45 GM Ref 0 For seven days Prov:Patsy Barnes MD 10/18/16 Miconazole 3 Vaginal Cream (Monistat 3 Vaginal Cream)4 % Cream1 Appl VAGINAL HS #1 BOX Ref 0 Apply 1 applicator to the vaginal area at bedtime. Repeat for 3 days. Prov:Annamarie Enamorado MD R2 09/29/16 Pyridoxine 25 Mg Tab25 Mg PO Q8HR PRN (NAUSEA OR VOMITING) #30 TAB Ref 11 Prov:Annamarie Enamorado MD R2 07/20/16 Reported Medications Pediatric Multiple Vitamin W/ (Gummi Bear Multivitamin/M)1 Chw Chw 04/07/16 Review of Systems General / Constitutional: No: Fever, Weight Gain, Chills, Other Eyes: No: Diploplia, Blurred Vision, Visual changes, Pain, Photophobia HENT: No: Headaches, Vertigo, Lightheadedness Cardiovascular: Edema (lower extremity), No: Irregular Rhythm, Chest Pain or Discomfort, Palpitations, Tachycardia, Syncope, Varicosities, Cyanosis Respiratory: No: Cough, Short of Breath, Other Gastrointestinal: No: Nausea, Vomiting, Diarrhea Genitourinary: No: Decreased Urinary Output, Oliguria Musculoskeletal: Edema (lower extremity), No: Limited ROM, Weakness, Cramping , Pain Skin: No Rash, No Itching, No Dryness, No Lumps, No Change in Pigmentation, No Change in Nails, No Alopecia, No Lesions Neurologic: No: Weakness, Dizziness, Syncope, Focal Abnormalities, Coordination Problem, Headache, Slurred Speech, Seizures Psychiatric: No: Depression, Suicidal Ideations, Homicidal Ideation Endocrine: No: Heat Intolerance, Cold Intolerance, Polydipsia, Polyuria, Other Physical Exam BP 115/72, HR 92, RR 18. Temperature 98.7 Narrative GENERAL: Well-nourished, well-developed patient. SKIN: Warm and dry. HEAD: Normocephalic and atraumatic. EYES: No scleral icterus. No injection or drainage. ENT: No nasal drainage noted. Mucous membranes pink. Airway patent. NECK: Supple, trachea midline. No JVD. CARDIOVASCULAR: Regular rate and rhythm without murmurs, gallops, or rubs. RESPIRATORY: Breath sounds equal bilaterally. No accessory muscle use. ABDOMEN/GI: Abdomen soft, non-tender. Gravid to 39 weeks size GENITOURINARY: Membranes: Intact Uterine Contractions: None FHT's: Category: 1 Baseline: 140 Reactive: + Variability: Moderate Decels: None EXTREMITIES: No cyanosis or edema. BACK: Nontender without obvious deformity. No CVA tenderness. NEUROLOGICAL: Awake and alert. Motor and sensory grossly within normal limits. Five out of 5 muscle strength in all muscle groups. Normal speech. Data Data Vital Signs Reviewed: Yes Assessment/Plan Assessment and Plan Patient is a 26-year-old at 39 weeks who presents today for a repeat section. * Admit to inpatient. * Diet NPO. * CBC - hemoglobin 10.0. * UA - pending. * Type and screen - pending. * LR IV. * SCDs ordered. * Urinary catheter placed. * Ancef 2 g IV. Janis Sanz MD R1 Oct 21, 2016 10:28
[2016-10-21] MEDS ORDERED: LACTATED RINGER'S 1000 ML INJ 1,000 ML IV ONE (11:15)
[2016-10-21 11:22] LABS: AUTOMATED NEUTROPHIL # 5.1 TH/MM3 (1.8-7.7); BASOPHIL % 0.2 % (0.0-2.0); EOSINOPHIL # 0.1 TH/MM3 (0-0.4); HEMATOCRIT 31.7 % (35.0-46.0); HEMO FLAGS DIFF FINAL; LYMPH % 24.3 % (9.0-44.0); LYMPHOCYTE # 1.8 TH/MM3 (1.0-4.8); MEAN CELL VOLUME 80.4 FL (80.0-100.0); MEAN CORPUSCULAR HEMOGLOBIN 25.4 PG (27.0-34.0); MEAN CORPUSCULAR HGB CONC 31.5 % (32.0-36.0); MONO % 5.3 % (0.0-8.0); NEUT % 69.2 % (16.0-70.0); PLATELET COUNT 384 TH/MM3 (150-450); RED BLOOD COUNT 3.95 MIL/MM3 (4.00-5.30); RED CELL DISTRIBUTION WIDTH 17.4 % (11.6-17.2); WHITE BLOOD COUNT 7.3 TH/MM3 (4.0-11.0)
[2016-10-21] MEDS ORDERED: OXYTOCIN 10 UNIT/ML AMP ONE (11:32)
[2016-10-21] MEDS ORDERED: ceFAZolin INJ 1,000 MG VIAL ONE (11:45)
[2016-10-21] MEDS ORDERED: LACTATED RINGER'S 1000 ML INJ 1,000 ML IV SCH ×2 (11:45→18:22)
--- NOTE | 2016-10-21 12:06 | PD.LABORPN ---
Subjective Subjective [facility] Attending Note Patient is a 26y/o with IUP at 39.0. She is here for a repeat C/S. She initially indicated she was interested in a BTL but her papers were only signed on [id number] and are not yet mature. However, after a thorough discussion of the permenant and irreversible nature of the procedure including the inability to have biological children without invitrofertilization,she states she no longer desires the tubal. She states that if something were to happen to one of her children (like a ), she would want to try to have additional children. The risks of C/S were discussed at length including but not limited to pain, infection, bleeding, injury to other organs (bladder, bowels, nerves, vessels) or baby, repeat operation for complication from this surgery, the increased risks with each sequential surgery, wound separation/breakdown, transfusion, and possible hysterectomy, as well as other possible risks and complications. All of the patients questions were answered and consent was signed. Discussed alternatives to BTL and patient will explore the long-term reversible contraceptive options. Objective Vital Signs Vital Signs Date Time Temp Pulse Resp B/P Pulse Ox O2 Delivery O2 Flow Rate FiO2 10/21/16 11:35 83 10/21/16 11:30 87 10/21/16 11:25 82 10/21/16 10:55 82 Objective Pelvic Exam: Cervix: [-] Dilatation: [-] Effacement: [-] Station: [-] Presentation: [-] Membranes: [intact or ruptured] Uterine Contractions: [-] FHT's: Category: [-] Baseline: [-] Reactive: [-] Variability: [-] Decels: [-] Adriana Murray MD Oct 21, 2016 12:05
[2016-10-21 12:39] LABS: BLOOD, URINE NEG (NEG); COMMENT (UR) CULT NOT INDICATED; CULTURE IF INDICATED CULT NOT INDICATED; GLUCOSE,URINE NEG (NEG); KETONE, URINE NEG (NEG); MUCUS URINE FEW /lpf (OCC); NITRITE,URINE NEG (NEG); PH, URINE 6.5 (5.0-8.5); SQUAMOUS EPITHELIAL CELL URINE 3 /hpf (0-5); URINE COLOR YELLOW (YELLW/STRAW)
[2016-10-21] MEDS ORDERED: CITRIC ACID-SODIUM CITRATE LIQ 30 ML UDC PO SCH (12:45)
[2016-10-21] MEDS ORDERED: ceFAZolin 2 GM PREMIX 50 ML IV SCH (12:45)
[2016-10-21] MEDS ORDERED: diphenhydrAMINE HCL 50 MG/ML VIAL ONE (13:07)
[2016-10-21] MEDS ORDERED: MORPHINE SULFATE PF 5 MG/10 ML VIAL ONE (13:27)
[2016-10-21] MEDS ORDERED: ACETAMINOPHEN 1000 MG/100 ML VIAL IV ONE (13:28)
[2016-10-21] MEDS ORDERED: ACETAMINOPHEN 325 MG TAB PO PRN (13:30)
[2016-10-21] MEDS ORDERED: ZOLPIDEM TARTRATE 5 MG TAB PO PRN (13:30)
[2016-10-21] MEDS ORDERED: OXYTOCIN 30 UNITS-500ML PREMIX 500 ML IV ONE (13:30)
[2016-10-21] MEDS ORDERED: SIMETHICONE 80 MG CHEWABLE TAB PO PRN (13:30)
[2016-10-21] MEDS ORDERED: oxyCODONE/ACETAMINOPHEN 5 MG/325 MG TAB PO PRN (13:30)
[2016-10-21] MEDS ORDERED: DOCUSATE SODIUM 50 MG/SENNA 8.6 MG TAB PO PRN (13:30)
[2016-10-21] MEDS ORDERED: SODIUM CHLORIDE 0.9% FLUSH 10 ML FLUSH IV FLUSH PRN (13:30)
[2016-10-21] MEDS: ONDANSETRON HCL 4 MG/2 ML VIAL IV PUSH PRN (18:44)
--- NOTE | 2016-10-21 20:53 | PD.OB.DELI ---
Procedure Note Section Procedure Performed by Adriana Murray Procedure: Repeat Low Transverse Sec Indication for delivery: Desired elective repeat Informed consent obtained: For anesthesia, For procedure Confirmed correct: Patient, Procedure, Site, Time-out taken Anesthesia: Spinal Medication prior to procedure: As documented in eMAR Monitoring during procedure: Blood pressure monitoring, Pulse oximetry Urinary catheter: Inserted using sterile technique, To dependent drainage Sterile preparation: Duraprep, In usual fashion Position: Supine with wedge to left side Operative Features Skin Incision: Pfannenstiel Uterine Incision: Low transverse w/knife / blunt ext Membranes Ruptured: Artificially Presentation: Occiput anterior Delivery of infant: Uneventful Infant: Male, Single One Minute : 9 Five Minute : 9 Weight: 2990g Status of : Viable Placenta delivered: Intact Medications: Antibiotics Estimated blood loss: 600cc Procedure tolerated: Well Maternal Condition: Stable Condition: Stable Procedure in detail See dictation Adriana Murray MD Oct 21, 2016 20:53
[2016-10-21] MEDS ORDERED: SODIUM CHLORIDE 0.9% FLUSH 10 ML FLUSH IV FLUSH SCH (21:00)
[2016-10-21] MEDS ORDERED: OXYTOCIN 30 UNITS-500ML PREMIX 500 ML IV PRN (23:30)
[2016-10-22] MEDS: oxyCODONE/ACETAMINOPHEN 5 MG/325 MG TAB PO PRN ×4 (01:24→20:09)
[2016-10-22 07:06] LABS: AUTOMATED NEUTROPHIL # 7.8 TH/MM3 (1.8-7.7); BASOPHIL % 0.4 % (0.0-2.0); EOSINOPHIL # 0.1 TH/MM3 (0-0.4); HEMATOCRIT 27.7 % (35.0-46.0); HEMO FLAGS DIFF FINAL; LYMPH % 15.2 % (9.0-44.0); LYMPHOCYTE # 1.5 TH/MM3 (1.0-4.8); MEAN CELL VOLUME 79.8 FL (80.0-100.0); MEAN CORPUSCULAR HEMOGLOBIN 26.3 PG (27.0-34.0); MEAN CORPUSCULAR HGB CONC 32.9 % (32.0-36.0); MONO % 6.9 % (0.0-8.0); NEUT % 76.5 % (16.0-70.0); PLATELET COUNT 309 TH/MM3 (150-450); RED BLOOD COUNT 3.47 MIL/MM3 (4.00-5.30); RED CELL DISTRIBUTION WIDTH 17.4 % (11.6-17.2); WHITE BLOOD COUNT 10.1 TH/MM3 (4.0-11.0)
--- NOTE | 2016-10-22 07:13 | MP ---
cc: ADRIANA MURRAY MD DATE OF SURGERY: 10/21/2016 PREOPERATIVE DIAGNOSIS: 1. at 39 weeks. 2. Prior section times two. 3. Obesity. POSTOPERATIVE DIAGNOSIS: 1. at 39 weeks. 2. Prior section times two. 3. Obesity. SURGEON: Adriana Murray MD. FUNCTIONAL SUPPORT ANALYST: Enrico Boyce. <<0:31>> PROCEDURE: Repeat low transverse section, two layer closure, no extensions. <<0:36>> skin incision. INDICATIONS FOR PROCEDURE: The patient is a 26 year-old G3, P2-0-0-2, presented for a term repeat delivery. FINDINGS: A viable male in a cephalic presentation, 's 9 and 9, weighing 2990 grams. The baby had normal maternal anatomy with some dense adhesions of the rectus muscle. In addition the Omentum was adherent to he fascia and anterior abdominal wall and the bladder was adhere to the anterior abdominal wall. There was a 1 cm right paratubal cyst noted. SPECIMENS: Specimens submitted not. ESTIMATED BLOOD LOSS: 600 cc. URINE OUTPUT: 100 cc. Clear urine at the end of the procedure. INTRAVENOUS FLUIDS 2300 cc. Lactate ringers. COMPLICATIONS: None. PROCEDURE: After obtaining informed consent, risks, benefits and alternatives discussed at length, including but not limited to pain, infection, bleeding, injury to other organs, bladder, bowels, nerves and vessels, injury to the baby, need for repeat operation or hysterectomy. Need for blood transfusion, wound break down and infection and other risks. The patient was taken to the operating room with intravenous fluids running. Reassuring heart tones were reconfirmed in the operating room and the patient underwent spinal anesthesia without difficulty. She is placed in the dorsal spine position with a leftward tilt and reassuring heart tones confirmed. The Donnelly catheter was placed under sterile conditions and the patient was prepped and draped in normal sterile fashion. A time out procedure was preformed. After once again confirming adequate anesthesia, Pfannenstiel skin incisions made with the scalpel and carried down to the level of the fascia. The fascia was nicked in the midline with the scalpel and a fascial incision was extended laterally with the peritoneal scissors. The Lucero clamps were applied to the superior aspect of the fascial incision was placed divided the rectus muscles bluntly under sharp dissection. The Lucero clamps were applied to the inferior aspect of the fascial incisions, was dissected out in a similar fashion. All the rectus muscles were noted to be densely adherent. However were able to be just anterior to the dissected off superior fascia. The peritoneum was entered bluntly and extended bluntly using care to maintain visualization of the bladder. All the rectus muscles were sharply with the curved Conner scissors by underlying with the surgeons finger. The peritoneum incision was then again extended and the adhesive band was noted on the patients left and transected. The <<3:43>> wound retractor was placed. The lower uterine segment was visualized. The bladder was noted to be well free of the area in which it was decided to make the hysterotomy. The hysterotomy was created by thinning out the lower uterine segment with the scalpel and subsequently entered and created bluntly and hysterotomy was extended bluntly, clear fluid was noted. The vertex was elevated at the level of the hysterotomy, delivered atraumatically. The remainder of the infant delivered atraumatically, the nose and mouth were suctioned with the bulb suction. After delay as per protocol. The cord was doubly clamped and cut and the infant was then handed off the awaiting pediatric team, cord blood was obtained from the nurse and the placenta was removed manually. The uterus was cleared of all clots and debris, the hysterotomy was repaired with the #1 chromic in a running locking fashion. The second layer of the tissue was used in an imbricating fashion. An additional figure of eight suture placed, in the mid portion of the hysterotomy after we checked hemostasis was noted. The fallopian tubes and ovaries were remove and examined and noted to be normal with the exception of the 1 cm right paratubal cyst. Hysterectomy was reinspected and noted to be hemostatic. The bladder was noted to be well and free and clear from the hysterotomy. An omental band was dissected of the fascia by clamping, cutting and tied. The rectus muscles were reapproximated in the midline. The rectus muscles were examined and noted to be hemostatic. The rectus muscles were reapproximated with #1 Chromic. The fascia is reapproximated with #1 Vicryl in a running fascia, both ABC'S were clearly included in the fascial closure and noted closure of the defect. Subcutaneous tissue was irrigated with normal saline and noted to be hemostatic after application of Bovie cautery. Subcutaneous tissue was reapproximated with 2-0 Vicryl. The skin edges are reapproximated with 4-0 Monocryl, excellent hemostasis and cosmesis were noted. Dermabond and a sterile dressing were applied. The instruments, needle counts were correct times four. I preformed the entire procedure myself. MD RAVI Valdes/arnoldo /11:21 PM /6:35 AM MTDErnesto
[2016-10-22] MEDS: ONDANSETRON HCL 4 MG/2 ML VIAL IV PUSH PRN (08:06)
--- NOTE | 2016-10-22 08:28 | HHI.OB ---
Subjective Post Operative Day: 1 Remarks Postoperative day #1. Afebrile, vital signs stable overnight. Incision is covered with pressure dressing and not draining. She reports minimal vaginal bleeding. She had to be straight catheterized yesterday but has since voided spontaneously. No breast tenderness. She is feeding the baby via formula but plans to transition to breast-feeding today. Appetite is okay but does have nausea this morning and has only been on liquids. No vomiting. Has not yet had a bowel movement or passing flatus. Ambulating well without dizziness or shortness of breath. Objective Vitals/I&O Vital Signs Date Time Temp Pulse Resp B/P Pulse Ox O2 Delivery O2 Flow Rate FiO2 10/21/16 14:50 98.6 75 16 102/64 10/21/16 14:15 72 18 115/67 100 10/21/16 14:15 97.9 10/21/16 14:00 73 18 100 10/21/16 14:00 116/66 10/21/16 13:45 114/58 10/21/16 13:45 72 18 100 10/21/16 13:32 98 108/55 10/21/16 13:32 98.2 18 99 10/21/16 11:40 81 10/21/16 11:35 83 10/21/16 11:30 87 10/21/16 11:25 82 10/21/16 10:55 82 Result Diagram: 10/22/16 0653 Objective Remarks GENERAL: Well-nourished, well-developed female patient. Obese. CARDIOVASCULAR: Regular rate and rhythm without murmurs, gallops, or rubs. RESPIRATORY: Breath sounds equal bilaterally. No accessory muscle use. ABDOMEN/GI: Abdomen soft, obese, non-tender, bowel sounds diminished. Incision: Clean, dry and intact pressure dressing Fundus: Firm, non-tender at umbilicus. GENITOURINARY: Light to moderate bleeding. EXTREMITIES: No cyanosis or edema, non-tender, without signs of DVT. Medications and IVs Current Medications Medications (Trade) Dose Ordered Sig/Michelle Route Start Time Stop Time Status Last Admin (Lr 1000 ml Inj) 1,000 ml @ 100 mls/hr Q10H IV 10/21/16 18:22 10/22/16 14:21 10/21/16 19:43 (NS Flush) 2 ml BID IV FLUSH 10/21/16 21:00 (NS Flush) 2 ml UNSCH PRN IV FLUSH 10/21/16 13:30 (Mylicon Chew) 80 mg QID PRN PO 10/21/16 13:30 (Tylenol) 650 mg Q6H PRN PO 10/21/16 13:30 (Motrin) 600 mg Q6H PRN PO 10/21/16 13:30 (Percocet 5-325 Mg) 1 tab Q4H PRN PO 10/21/16 13:30 (Percocet 5-325 Mg) 2 tab Q4H PRN PO 10/21/16 13:30 10/22/16 07:05 (Jessy-Colace) 2 tab Q12H PRN PO 10/21/16 13:30 (Ambien) 5 mg HS PRN PO 10/21/16 13:30 (M-M-R Ii Inj) 0.5 ml ONCE ONCE SQ 10/22/16 16:00 10/22/16 16:01 (Boostrix Inj) 0.5 ml ONCE ONCE IM 10/22/16 16:00 10/22/16 16:01 (Zofran Inj) 4 mg Q6H PRN IV PUSH 10/21/16 13:30 10/22/16 08:06 Assessment/Plan Assessment and Plan 26 y/o female who is POD #1 status post repeat . -Postoperative H&H stable -Continue routine care. -Percocet and Motrin PRN pain. -Encouraged OOB. Advised pelvic rest for 6 wks. Will need a f/u appt. in 1 wk for incision check. -Re: ctrl, she would like to consider IUD versus Nexplanon. -Anticipate discharge in 12 days. Antibody screen positive, leukocyte reduced red blood cells were prepared by the blood bank, but not indicated at this time. Discussed with Dr. Brianna Murray Discharge Planning Likely 12 days Annamarie Enamorado MD R2 Oct 22, 2016 08:28
[2016-10-22] MEDS: IBUPROFEN 600 MG TAB PO PRN ×2 (12:17→20:09)
[2016-10-22] MEDS ORDERED: PROMETHAZINE INJ 25 MG/ML VIAL IM PRN (16:00)
[2016-10-22] MEDS ORDERED: DIPHTH/TETANUS/ACEL PERTUSSIS (BOOSTER) 0.5 ML VIAL/PFS IM ONE (16:00)
[2016-10-22] MEDS ORDERED: MEASLES, MUMPS, RUBELLA VACCINE 0.5 ML VIAL SQ ONE (16:00)
[2016-10-23] MEDS: oxyCODONE/ACETAMINOPHEN 5 MG/325 MG TAB PO PRN ×4 (02:26→23:52)
[2016-10-23] MEDS: IBUPROFEN 600 MG TAB PO PRN ×4 (02:26→23:51)
--- NOTE | 2016-10-23 08:35 | HHI.OB ---
Subjective Post Operative Day: 2 Remarks Pt seen and examined this morning. Postoperative day # 2 AFVSS overnight. Incision not draining. Decreased lochia. Denies dysuria. No breast tenderness. She is feeding the baby via breast and bottle. Appetite good. No nausea or vomiting. Patient has not yet had a bowel movement, but does endorse passing gas. Ambulating well. Denies calf pain or shortness of breath. Otherwise, she is doing well this morning and has no other concerns. Objective Result Diagram: 10/22/16 0653 Objective Remarks GENERAL: Well-nourished, well-developed female patient. Obese. CARDIOVASCULAR: Regular rate and rhythm without murmurs, gallops, or rubs. RESPIRATORY: Breath sounds equal bilaterally. No accessory muscle use. ABDOMEN/GI: Abdomen soft, obese, non-tender, bowel sounds diminished. Incision: Clean, dry and intact pressure dressing. Fundus: Firm, non-tender at umbilicus. GENITOURINARY: Light to moderate bleeding. EXTREMITIES: No cyanosis or edema, non-tender, without signs of DVT. Medications and IVs Current Medications Medications (Trade) Dose Ordered Sig/Michelle Route Start Time Stop Time Status Last Admin (NS Flush) 2 ml BID IV FLUSH 10/21/16 21:00 (NS Flush) 2 ml UNSCH PRN IV FLUSH 10/21/16 13:30 (Mylicon Chew) 80 mg QID PRN PO 10/21/16 13:30 (Tylenol) 650 mg Q6H PRN PO 10/21/16 13:30 (Motrin) 600 mg Q6H PRN PO 10/21/16 13:30 10/23/16 02:26 (Percocet 5-325 Mg) 1 tab Q4H PRN PO 10/21/16 13:30 (Percocet 5-325 Mg) 2 tab Q4H PRN PO 10/21/16 13:30 10/23/16 02:26 (Jessy-Colace) 2 tab Q12H PRN PO 10/21/16 13:30 (Ambien) 5 mg HS PRN PO 10/21/16 13:30 (Zofran Inj) 4 mg Q6H PRN IV PUSH 10/21/16 13:30 10/22/16 08:06 (Phenergan Inj) 25 mg Q6H PRN IM 10/22/16 16:00 10/22/16 16:57 Assessment/Plan Assessment and Plan 26 y/o female who is POD #1 status post repeat . -Postoperative H&H stable -Continue routine care. -Percocet and Motrin PRN pain. -Patient to remove surgical bandage today. -Encouraged OOB. Advised pelvic rest for 6 wks. Will need a f/u appt. in 1 wk for incision check. -Re: ctrl, she would like to consider IUD versus Nexplanon. -Anticipate discharge tomorrow pending clinical course. Antibody screen positive, leukocyte reduced red blood cells were prepared by the blood bank, but not indicated at this time. Discussed with Dr. Coleman Discharge Planning Likely tomorrow Joni Victor MD R2 Oct 23, 2016 08:34
--- NOTE | 2016-10-24 08:15 | HHI.OB ---
Subjective Post Operative Day: 3 Remarks Patient is a 26-year-old delivered at 39 weeks and 0 days. Patient is postop day 3 after . Patient's pain is well-controlled. Patient reports eating and drinking without any nausea or vomiting. Patient reports minimal bleeding. Patient has passed gas but no bowel movements. Patient is walking without lower extremity pain or shortness of breath or chest pain. She denies feelings of depression. Patient reports desire for contraception with OCPs and bottle feeding and breast-feeding. Objective Result Diagram: 10/22/16 0653 Objective Remarks GENERAL: Well-nourished, well-developed female patient. Obese. CARDIOVASCULAR: Regular rate and rhythm without murmurs, gallops, or rubs. RESPIRATORY: Breath sounds equal bilaterally. No accessory muscle use. ABDOMEN/GI: Abdomen soft, obese, non-tender, bowel sounds diminished. Incision: Clean, dry and intact pressure dressing. Fundus: Firm, non-tender at umbilicus. GENITOURINARY: Light bleeding. EXTREMITIES: No cyanosis or edema, non-tender, without signs of DVT. Medications and IVs Current Medications Medications (Trade) Dose Ordered Sig/Michelle Route Start Time Stop Time Status Last Admin (NS Flush) 2 ml BID IV FLUSH 10/21/16 21:00 (NS Flush) 2 ml UNSCH PRN IV FLUSH 10/21/16 13:30 (Mylicon Chew) 80 mg QID PRN PO 10/21/16 13:30 (Tylenol) 650 mg Q6H PRN PO 10/21/16 13:30 (Motrin) 600 mg Q6H PRN PO 10/21/16 13:30 10/23/16 23:51 (Percocet 5-325 Mg) 1 tab Q4H PRN PO 10/21/16 13:30 (Percocet 5-325 Mg) 2 tab Q4H PRN PO 10/21/16 13:30 10/23/16 23:52 (Jessy-Colace) 2 tab Q12H PRN PO 10/21/16 13:30 10/23/16 11:04 (Ambien) 5 mg HS PRN PO 10/21/16 13:30 (Zofran Inj) 4 mg Q6H PRN IV PUSH 10/21/16 13:30 10/22/16 08:06 (Phenergan Inj) 25 mg Q6H PRN IM 10/22/16 16:00 10/22/16 16:57 Assessment/Plan Assessment and Plan Patient is a 26-year-old delivered at 39 weeks and 0 days. Patient is postop day 3 after . -Postoperative H&H stable -Continue routine care. -Percocet and Motrin PRN pain. -Encouraged OOB. Advised pelvic rest for 6 wks and follow-up at that time. Will need a f/u appt. in 1 wk for incision check. -Re: ctrl, will discharge with prescription for OCPs -Anticipate discharge today pending clinical course. Antibody screen positive, leukocyte reduced red blood cells were prepared by the blood bank, but not indicated at this time. Discussed with Dr. Murray Discharge Planning Likely today Lele Cage MD R2 Oct 24, 2016 08:14
[2016-10-24] MEDS: IBUPROFEN 600 MG TAB PO PRN (08:36)
[2016-10-24] MEDS ORDERED: NORE0.3514 PO ×2 (10:34→10:52)
--- NOTE | 2016-10-24 10:36 | HHI.DCPOC ---
Discharge Care Plan Diagnosis: (1) Previous section (2) S/P Report Symptoms to Your Doctor -Temperature above 100.5 degrees -Redness, of incision or excessive or foul smelling drainage -Unusual pain or calf pain -Increased vaginal bleeding -Painful or difficulty urinating -Feelings of extreme sadness or anxiety after 2 weeks Goals to Promote Your Health * To prevent worsening of your condition and complications, please follow up with your doctor in 1 week and again in 6 weeks. * To maintain your health at the optimal level, please diet and exercise as instructed by your doctor. Directions to Meet Your Goals Take your medications as prescribed Follow your dietary instruction Follow activity as directed Ensure plenty of rest for recovery Drink fluids for hydration Keep your appointments as scheduled Take your immunizations and boosters as scheduled If your symptoms worsen call your PCP, if no PCP go to Urgent Care Center or Emergency Room Smoking is Dangerous to Your Health. Avoid second hand smoke Call the 24-hour crisis hotline for domestic abuse at Lele Cage MD R2 Oct 24, 2016 10:36
[2016-10-24] MEDS ORDERED: OXYC1TAB63 PO (10:49)
[2016-10-24] MEDS ORDERED: IBUP-232 PO (10:49)
== END 2016-10-24 13:27 | disposition home or self-care (01) | DRG 765 ==
LOC: H2EB 09:54 → H1EA 14:30
PROVIDERS: ADMIT Obstetrics & Gynecology; ATTEND Obstetrics & Gynecology
PROC: 10D00Z1 Extraction of Products of Conception, Low, Open Approach (ICD-10-PCS; principal; 2016-10-21)
PROC: 0DNW0ZZ Release Peritoneum, Open Approach (ICD-10-PCS; 2016-10-21)
PROC: 0KNL0ZZ Release Left Abdomen Muscle, Open Approach (ICD-10-PCS; 2016-10-21)
PROC: 0KNK0ZZ Release Right Abdomen Muscle, Open Approach (ICD-10-PCS; 2016-10-21)
DX: O34.211 Maternal care for low transverse scar from previous cesarean delivery (principal); Z68.42 Body mass index [BMI] 45.0-49.9, adult; O99.214 Obesity complicating childbirth; O90.89 Other complications of the puerperium, not elsewhere classified; R11.0 Nausea; O99.62 Diseases of the digestive system complicating childbirth; K66.0 Peritoneal adhesions (postprocedural) (postinfection); O34.83 Maternal care for other abnormalities of pelvic organs, third trimester; N83.8 Other noninflammatory disorders of ovary, fallopian tube and broad ligament; Z3A.39 39 weeks gestation of pregnancy; Z37.0 Single live birth
CPT/HCPCS: 76818; 81001; 85025; 86077; 86850; 86870; 86900; 86901; 86920; 86922; 90715; J0131; J0690; J1200; J2274; J2405; J2550; J2590; J7120

== ENCOUNTER 2017-02-19 12:41 | Emergency (ER) | payer MEDICAID ==
[~2017-02-19] VITALS: Ht 149.9 cm; Wt 100.0 kg
[~2017-02-19 12:41] MED LIST changes: -MICO1CRE2 VAGINAL; -PYRI25TA2 PO; +SPRI28TA PO; -TERC0.4C2 VAGINAL
[2017-02-19 12:44] VITALS: BP 106/71; PULSE 117; RESP 18; TEMP 98; O2SAT 99
[2017-02-19 13:13] LABS: BLOOD, URINE NEG (NEG); GLUCOSE,URINE NEG (NEG); KETONE, URINE NEG (NEG); MUCUS URINE FEW /lpf (OCC); NITRITE,URINE NEG (NEG); PH, URINE 6.5 (5.0-8.5); SQUAMOUS EPITHELIAL CELL URINE 1 /hpf (0-5); TRANSITIONAL EPI CELLS, URINE <1 /hpf; URINE COLOR YELLOW (YELLW/STRAW)
[2017-02-19 13:14] LABS: COMMENT (UR) CULTURE INDICATED; CULTURE IF INDICATED CULTURE INDICATED
[2017-02-19] MEDS ORDERED: NITROFURANTOIN MONOHYD MACROCR 100 MG CAP PO ONE (13:45)
[2017-02-19] MEDS ORDERED: PHENAZOPYRIDINE HCL 200 MG TAB PO ONE (13:45)
[2017-02-19] MEDS ORDERED: PHEN0.4T PO (13:50)
[2017-02-19] MEDS ORDERED: MACR100C2 PO (13:50)
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
[2017-02-19 13:53] VITALS: BP 148/76; PULSE 91; RESP 18; O2SAT 100
== END 2017-02-19 14:10 | disposition home or self-care (01) ==
LOC: NEPE 12:41
DX: N39.0 Urinary tract infection, site not specified (principal); R00.0 Tachycardia, unspecified; B96.89 Other specified bacterial agents as the cause of diseases classified elsewhere; Z79.899 Other long term (current) drug therapy
CPT/HCPCS: 81001; 84703; 87086; 99284

== ENCOUNTER 2017-03-26 20:38 | Emergency (ER) | payer OTHER, MEDICAID ==
[~2017-03-26] VITALS: Ht 149.9 cm; Wt 99.0 kg
[~2017-03-26 20:38] MED LIST changes: -GUMMCHW; +MACR100C2 PO; +PHEN0.4T PO
[2017-03-26 20:41] VITALS: BP 125/83; PULSE 140; RESP 26; TEMP 99; O2SAT 99
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
[2017-03-26] MEDS ORDERED: ACETAMINOPHEN/HYDROcodone 325 MG/5 MG TAB PO ONE (21:15)
[2017-03-26 21:27] VITALS: PULSE 110; RESP 18; O2SAT 100
[2017-03-26 21:42] LABS: AUTOMATED NEUTROPHIL # 5.4 TH/MM3 (1.8-7.7); BASOPHIL % 0.3 % (0.0-2.0); EOSINOPHIL # 0.3 TH/MM3 (0-0.4); HEMOGLOBIN 11.5 GM/DL (11.6-15.3); LYMPH % 27.6 % (9.0-44.0); LYMPHOCYTE # 2.3 TH/MM3 (1.0-4.8); MEAN CELL VOLUME 80.2 FL (80.0-100.0); MEAN CORPUSCULAR HEMOGLOBIN 26.3 PG (27.0-34.0); MEAN CORPUSCULAR HGB CONC 32.8 % (32.0-36.0); MEAN PLATELET VOLUME 7.1 FL (7.0-11.0); MONO % 5.2 % (0.0-8.0); MONOCYTE # 0.4 TH/MM3 (0-0.9); NEUT % 63.9 % (16.0-70.0); PLATELET COUNT 374 TH/MM3 (150-450); RED BLOOD COUNT 4.37 MIL/MM3 (4.00-5.30); RED CELL DISTRIBUTION WIDTH 17.1 % (11.6-17.2); WHITE BLOOD COUNT 8.4 TH/MM3 (4.0-11.0)
[2017-03-26 21:57] LABS: BICARBONATE 24.9 MEQ/L (21.0-32.0); CALCIUM 8.5 MG/DL (8.5-10.1); CREATININE 1.03 MG/DL (0.50-1.00)
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
[2017-03-26] MEDS ORDERED: IOHEXOL 350 MG/ML 10 ML VIAL (for RAD DIAG) IVCONTRAST ONE (22:30)
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
[2017-03-26] MEDS ORDERED: ROBA500T PO (22:36)
[2017-03-26] MEDS ORDERED: DICL75TA PO (22:36)
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
[2017-03-26 23:06] VITALS: RESP 16
== END 2017-03-26 23:09 | disposition home or self-care (01) ==
LOC: NEPC 20:38
DX: S13.4XXA Sprain of ligaments of cervical spine, initial encounter (principal); T14.8XXA Other injury of unspecified body region, initial encounter; K80.20 Calculus of gallbladder without cholecystitis without obstruction; V49.40XA Driver injured in collision with unspecified motor vehicles in traffic accident, initial encounter
CPT/HCPCS: 70450; 71045; 71260; 72125; 74177; 80048; 84703; 85025; 99285; Q9967